=== PATIENT | female | born 1965 | race Caucasian/White ===

== ENCOUNTER 2019-01-06 17:28 | Emergency (ER) | payer BC ==
[2019-01-06] MEDS ORDERED: Lidocaine 2% Viscous Solution 15 ML Cup ONE (18:10)
--- NOTE | 2019-01-06 18:19 | EDM.PDOC ---
ED HPI GENERAL MEDICAL PROBLEM - General Chief Complaint: General Stated Complaint: FELL & HURT LEFT RIGHT OF BODY Time Seen by Provider: 01/06/19 18:05 Source of Information: Reports: Patient, Family History Limitations: Reports: No Limitations - History of Present Illness INITIAL COMMENTS - FREE TEXT/NARRATIVE: 53 yo female fell before arrival and incurred some abrasions of her extremities and knocked a tooth out. No LOC. Last tetanus was 2 yrs ago. [place]. Mainly wants her wounds cleaned. Onset: Today Onset Date: 01/06/19 Duration: Minutes:, Constant Location: Reports: Face (tooth), Upper Extremity, Left, Lower Extremity, Left, Lower Extremity, Right Quality: Reports: Burning Severity: Mild Improves with: Reports: None Worsens with: Reports: None Context: Reports: Other (fall from standing) Associated Symptoms: Reports: No Other Symptoms Treatments [employer]ER: Reports: Other (see below) (none) - Related Data Allergies Allergy/AdvReac Type Severity Reaction Status Date / Time No Known Allergies Allergy Verified 01/06/19 18:14 Home Meds: Home Meds FLUoxetine HCl [Prozac] 01/06/19 [History] Furosemide [Lasix] 01/06/19 [History] Lisinopril 01/06/19 [History] ED ROS GENERAL - Review of Systems Review Of Systems: See Below Constitutional: Reports: No Symptoms HEENT: Reports: No Symptoms, Other (avulsed tooth) Respiratory: Reports: No Symptoms Cardiovascular: Reports: No Symptoms GI/Abdominal: Reports: No Symptoms : Reports: No Symptoms Musculoskeletal: Reports: No Symptoms Skin: Reports: Wound (abrasions of the extremities) ED EXAM, GENERAL - Physical Exam Exam: See Below Exam Limited By: No Limitations General Appearance: Alert, WD/WN, No Apparent Distress Eye Exam: Bilateral Eye: Normal Inspection Ears: Normal External Exam, Normal Canal, Hearing Grossly Normal. No: Hearing Loss Ear Exam: Bilateral Ear: Auricle Normal, Canal Normal Nose: Normal Inspection, No Blood Throat/Mouth: Normal Lips, Normal Oropharynx, Normal Voice, No Airway Compromise , Other (L upper lateral incisor missing due to avulsion. No active bleeding. The other teeth all have considerable gum recession ). No: Normal Teeth Head: Normocephalic, Other (chin abrasion) Neck: Normal Inspection, Non-Tender Respiratory/Chest: No Respiratory Distress, Lungs Clear, Normal Breath Sounds, No Accessory Muscle Use Cardiovascular: Regular Rate, Rhythm, No Edema Neurological: Alert, Oriented, CN II-XII Intact, Normal Cognition, No Motor/ Sensory Deficits Psychiatric: Normal Affect, Normal Mood Skin Exam: Warm, Dry, Normal Color, No Rash, Wound/Incision (small abrasions on knees, elbows) Course - Vital Signs Text/Narrative:: Wounds cleaned per nursing. Last Recorded V/S: Last Vital Signs Temp 36.1 C 01/06/19 18:07 Pulse 92 01/06/19 18:07 Resp 16 01/06/19 18:07 BP 152/94 H 01/06/19 18:07 Pulse Ox 93 L 01/06/19 18:07 - Orders/Labs/Meds Meds: Medications Discontinued Medications Generic Name Dose Route Start Last Admin Trade Name Freq PRN Reason Stop Dose Admin Lidocaine HCl Confirm 01/06/19 18:10 Xylocaine 2% Viscous Administered 01/06/19 18:11 Dose 15 ml .ROUTE .STK-MED ONE Departure - Departure Time of Disposition: 18:55 Disposition: Home, Self-Care 01 Condition: Good Clinical Impression: Abrasions of multiple sites Avulsed tooth Qualifiers: Encounter type: initial encounter Qualified Code(s): S03.2XXA - Dislocation of tooth, initial encounter - Discharge Information *PRESCRIPTION DRUG MONITORING PROGRAM REVIEWED*: No *COPY OF PRESCRIPTION DRUG MONITORING REPORT IN PATIENT CONSTANTINO: No Referrals: PCP,None [Primary Care Provider] - Forms: ED Department Discharge Additional Instructions: Clean wounds twiced daily with soap and water. Dry. Apply antibiotic ointment. Keep wounds clean x 3 days. Take acetaminophen as needed for pain relief. Recheck for signs of infection.
[2019-01-06] MEDS ORDERED: Lidocaine 4% Top Soln 50 ML Bottle TOP ONE (19:28)
[2019-01-06] MEDS ORDERED: Lidocaine 2% Jelly 30 ML Tube MUCMEM ONE (19:31)
== END 2019-01-06 19:33 | disposition home or self-care (01) ==
LOC: JP.ED 17:28
DX: S03.2XXA Dislocation of tooth, initial encounter (principal); S80.211A Abrasion, right knee, initial encounter; S80.212A Abrasion, left knee, initial encounter; S50.311A Abrasion of right elbow, initial encounter; S50.312A Abrasion of left elbow, initial encounter; S00.81XA Abrasion of other part of head, initial encounter; W19.XXXA Unspecified fall, initial encounter
CPT/HCPCS: 99283